=== PATIENT | female | born 1995 | race Caucasian/White ===

== ENCOUNTER 2023-12-25 09:24 | Emergency (ER) | payer OTHER, SELFPAY ==
[2023-12-25 09:34] VITALS: BP 145/94
[2023-12-25 09:52] VITALS: BMI 24.6
--- NOTE | 2023-12-25 10:17 | ED.GENMED ---
History of Present Illness
General
Chief Complaint: DVT/Possible Blood Clot
Time Seen by Provider: 12/25/23 10:08
Travel History
Have you had any contact with someone who has COVID-19?: No
Do you have any symptoms of coronavirus? Fever > 100 degrees, chills, cough, shortness of breath, sore throat, loss of taste or smell, muscle aches, or headache?: No
History of Present Illness
History of Present Illness:
28-year-old female presents to the emergency department for evaluation of intermittent numbness to bilateral dorsal feet associated with painful bruising to the left posterior lateral thigh. Numbness has been intermittent for several weeks and the
bruising was just noted over the past few days. She is concerned about a possible DVT. She has no underlying medical conditions. Denies any traumatic injuries to the thigh. Denies any obvious provoking or palliating factors of the numbness,
states that is quite random. Is not provoked by cold temperatures. No discoloration to the feet. No underlying history of diabetes. No associated fever, chills, sweats, weight loss, or bowel movement changes.
Past History
Past History
ED Past Medical History: None
ED Past Surgical History: None
Social History
Living: with family
Review of Systems
Review of Systems
Allergies reviewed?: Yes
All Other Systems: ROS reviewed and negative except as documented in HPI and ROS
Phy Exam
Physical Exam
Physical Exam:
GEN: Well appearing, NAD, WDWN
HEENT: Oral mucosa moist, no scleral icterus
Cardiac: Regular rate
Lung: No respiratory distress, no tachypnea
MSK: No gross deformity or injuries.minor ecchymosis to the left posterior lateral thigh, no palpable venous cord, no fluctuance, no discharge, tender to palpation. Bilateral dorsalis pedis pulses are 2+,
Skin: Good color, no pallor or jaundice, no rashes
Neuro: AO x3, moves all extremities freely. Sensation intact to bilateral feet symmetrically, no discolorations
Psych: Calm, cooperative
Course
Orders/Labs/Results
Orders:
Orders
12/25/23 10:29
Basic Metabolic Panel Urgent
Complete Blood Count/With Diff Urgent
Ferritin Urgent
Comment: ADD ON
Iron Urgent
Total Iron Binding Urgent
Vitamin B12 Urgent
Comment: ADD ON
12/25/23 11:13
Add On- LAB Urgent
Tests Added?: iron, ferritin, TIBC, B12
Abnormal Lab Results
12/25/23
10:29
MCV 77.1 L fL
(81.0-99.0)
MCH 23.3 L pg
(27.0-31.0)
MCHC 30.3 L g/dL
(33.0-37.0)
RDW 14.6 H %
(11.5-14.5)
Chloride 108 H mmol/L
(98-107)
BUN 20 H mg/dl
(7-17)
Glucose 100 H mg/dl
(70-99)
% Saturation 15 L %
(20-50)
Ferritin 4.4 L ng/ml
(6.24-137)
12/25/23 10:29
12/25/23 10:29
Vital Signs
Initial and Last Documented VS:
Initial Vital Signs
Temp Pulse Resp BP Pulse Ox
98.2 F 96 20 145/94 100
12/25/23 09:34 12/25/23 09:34 12/25/23 09:34 12/25/23 09:34 12/25/23 09:34
Last Documented Vital Signs
Temp Pulse Resp BP Pulse Ox
98.2 F 96 20 145/94 100
12/25/23 09:34 12/25/23 09:34 12/25/23 09:34 12/25/23 09:34 12/25/23 09:34
MDM/Problems Addressed
MDM/Problems Addressed:
Patient does have hypochromic and microcytic RBCs however normal hemoglobin value. Uncertain if this could correlate with a intermittent neuropathy she describes. No clinical concern for DVT. Iron studies were sent, recommend outpatient PCP
follow-up for further direction
*Critical Care Note
Total Time (30-74mins, 75-104mins- exclusive of procedures): Not Applicable
ED Attending Note
-
Portions of this chart may have been created with voice recognition software.� Occasional wrong word or��sound alike� substitutions may have occurred due to the inherent limitations of voice recognition software.
Discharge Plan
Departure
Patient Disposition: Home (Routine Discharge)
Date of Disposition: 12/25/23
Time of Disposition: 11:13
Patient with high blood pressure during this ER visit?: No
Discharge Problem:
Paresthesia
Instructions: Paresthesia (DC)
Prescriptions:
No Action
[id number] fum-folic 1 EACH tablet
1 ea PO DAILY
metoprolol kaba-hydrochlorothiaz [Dutoprol] 1 EACH tablet extended release 24 hr
1 tab PO DAILY
Referrals:
Jaxson Layne MD [Family Provider] -
Activity Restrictions/Additional Instructions:
Your hemoglobin is normal however your red blood cells are smaller than expected. This can sometimes indicate subtle anemia, such as iron deficiency. These tests will take several hours to days to complete. Please access your portal and follow up
with a primary care physician to discuss these results and next steps once they are resulted
Interventions
Interventions:
*Risk Screen - Suicide Last Done: 12/25/23 09:52
*General Assessment Last Done: 12/25/23 09:52
*Neglect/Abuse Screening Last Done: 12/25/23 09:52
ED- Fall Risk Assessment Last Done: 12/25/23 09:52
*ED COVID-19 Vaccine History Last Done: 12/25/23 09:34
*Nursing Disposition Last Done: 12/25/23 11:30
ED- Cardiac Assessment Last Done: 12/25/23 09:52
ED- Pulmonary Assessment Last Done: 12/25/23 09:52
ED-Peripheral Vascular Assessment Last Done: 12/25/23 09:52
ED-Skin Assessment Last Done: 12/25/23 09:52
Discharge Date and Time
Discharge Date/Time: 12/25/23 11:20
Print Language: MACANESE
[2023-12-25 10:40] LABS: % Basophils 0.9 % (0-2); % Eosinophils 4.6 % (0-6); % Immature Granulocytes 0.2 % (0-0.5); % Lymphocytes 30.2 % (20.5-51.1); % Monocytes 6.2 % (1.7-9.3); % Neutrophils 57.9 % (42.2-75.2); Absolute Basophils 0.1 10^3/uL (0-0.2); Absolute Eosinophils 0.3 10^3/uL (0-0.7); Absolute Lymphocytes 1.7 10^3/uL (1.2-3.4); Absolute Monocytes 0.4 10^3/uL (0.1-0.6); Absolute Neutrophils 3.3 10^3/uL (1.4-6.5); Hemoglobin 12.1 g/dL (12.0-16.0); Mean Corp Hgb Conc. 30.3 g/dL (33.0-37.0); Mean Corpuscular Hgb 23.3 pg (27.0-31.0); Mean Corpuscular Volume 77.1 fL (81.0-99.0); Mean Platelet Volume 9.2 fL (7.4-10.4); Nucleated Red Blood Cells % 0 %; Platelet Count 253 10^3/uL (130-400); Red Blood Cell Count 5.19 10^6/uL (4.20-5.40); Red Cell Dist. Width 14.6 % (11.5-14.5); White Blood Cell Count 5.6 10^3/uL (4.8-10.8)
[2023-12-25 10:52] LABS: Blood Urea Nitrogen 20 mg/dl (7-17); Calcium 9.6 mg/dl (8.4-10.2); Carbon Dioxide 24 mmol/L (22-30); Chloride 108 mmol/L (98-107); Estimated Creatinine Clearance 102 ml/min; Glucose 100 mg/dl (70-99); Potassium 4.2 mmol/L (3.5-5.1); Sodium 139 mmol/L (135-145); eGFR > 60.00
--- NOTE | 2023-12-25 11:30 | EDRN ---
Discharge instructions given to patient by Aleksandar Nogueira PA-C.
[2023-12-25 12:58] LABS: Iron 57 ug/dl (37-170)
[2023-12-25 13:08] LABS: Percent Saturation 15 % (20-50); Total Iron Binding Capacity 379 ug/dl (265-497)
[2023-12-25 13:28] LABS: Ferritin 4.4 ng/ml (6.24-137)
[2023-12-25 13:42] LABS: Vitamin B12 436 pg/ml (239-931)
== END 2023-12-25 11:20 | disposition home or self-care (01) ==
LOC: EMR 09:24
PROVIDERS: Physician Assistant; EMERGENCY PHYSICIAN Emergency Medicine; FAMILY PHYSICIAN Internal Medicine
DX: R20.2 Paresthesia of skin (principal); R20.0 Anesthesia of skin
CPT/HCPCS: 99283; 80048; 82607; 82728; 83540; 83550; 85025

== ENCOUNTER → 2024-02-13 16:16 | Outpatient (REF) | payer OTHER, SELFPAY ==
[2024-02-13 14:14] LABS: % Basophils 0.6 % (0-2); % Lymphocytes 41.4 % (20.5-51.1); % Monocytes 5.1 % (1.7-9.3); % Neutrophils 47.9 % (42.2-75.2); Absolute Eosinophils 0.3 10^3/uL (0-0.7); Absolute Lymphocytes 2.8 10^3/uL (1.2-3.4); Absolute Monocytes 0.3 10^3/uL (0.1-0.6); Absolute Neutrophils 3.2 10^3/uL (1.4-6.5); Hematocrit 39.7 % (37.0-47.0); Hemoglobin 12.4 g/dL (12.0-16.0); Mean Corp Hgb Conc. 31.2 g/dL (33.0-37.0); Mean Corpuscular Hgb 24.3 pg (27.0-31.0); Mean Corpuscular Volume 77.8 fL (81.0-99.0); Mean Platelet Volume 9.2 fL (7.4-10.4); Platelet Count 290 10^3/uL (130-400); Red Cell Dist. Width 16.3 % (11.5-14.5); White Blood Cell Count 6.6 10^3/uL (4.8-10.8)
== END ==
LOC: OIDL 16:16
PROVIDERS: ATTENDING PHYSICIAN Internal Medicine Hematology & Oncology
DX: D50.9 Iron deficiency anemia, unspecified (principal)
CPT/HCPCS: 85025

== ENCOUNTER → 2024-02-19 15:32 | Outpatient (REF) | payer OTHER, SELFPAY ==
[2024-02-19 15:24] LABS: % Basophils 0.9 % (0-2); % Eosinophils 2.4 % (0-6); % Immature Granulocytes 0.1 % (0-0.5); % Lymphocytes 34.3 % (20.5-51.1); % Monocytes 5.3 % (1.7-9.3); Absolute Basophils 0.1 10^3/uL (0-0.2); Absolute Eosinophils 0.2 10^3/uL (0-0.7); Absolute Lymphocytes 2.4 10^3/uL (1.2-3.4); Absolute Monocytes 0.4 10^3/uL (0.1-0.6); Hematocrit 37.5 % (37.0-47.0); Hemoglobin 11.9 g/dL (12.0-16.0); Mean Corp Hgb Conc. 31.7 g/dL (33.0-37.0); Mean Corpuscular Hgb 24.1 pg (27.0-31.0); Mean Corpuscular Volume 75.9 fL (81.0-99.0); Mean Platelet Volume 9.3 fL (7.4-10.4); Nucleated Red Blood Cells % 0 %; Platelet Count 280 10^3/uL (130-400); Red Blood Cell Count 4.94 10^6/uL (4.20-5.40); Red Cell Dist. Width 16.6 % (11.5-14.5)
== END ==
LOC: OIDL 15:32
PROVIDERS: ATTENDING PHYSICIAN Internal Medicine Hematology & Oncology
DX: D50.9 Iron deficiency anemia, unspecified (principal)
CPT/HCPCS: 85025

== ENCOUNTER → 2024-03-04 15:43 | Outpatient (REF) | payer OTHER, SELFPAY ==
[2024-03-04 14:31] LABS: % Basophils 0.9 % (0-2); % Eosinophils 4.7 % (0-6); % Immature Granulocytes 0.3 % (0-0.5); % Lymphocytes 36.1 % (20.5-51.1); % Monocytes 7.1 % (1.7-9.3); % Neutrophils 50.9 % (42.2-75.2); Absolute Basophils 0.1 10^3/uL (0-0.2); Absolute Eosinophils 0.3 10^3/uL (0-0.7); Absolute Lymphocytes 2.5 10^3/uL (1.2-3.4); Absolute Monocytes 0.5 10^3/uL (0.1-0.6); Absolute Neutrophils 3.5 10^3/uL (1.4-6.5); Hemoglobin 12.3 g/dL (12.0-16.0); Mean Corp Hgb Conc. 32.4 g/dL (33.0-37.0); Mean Corpuscular Hgb 25.1 pg (27.0-31.0); Mean Corpuscular Volume 77.6 fL (81.0-99.0); Mean Platelet Volume 9.1 fL (7.4-10.4); Nucleated Red Blood Cells % 0 %; Platelet Count 241 10^3/uL (130-400); Red Cell Dist. Width 17.7 % (11.5-14.5); White Blood Cell Count 6.9 10^3/uL (4.8-10.8)
== END ==
LOC: OIDL 15:43
PROVIDERS: ATTENDING PHYSICIAN Internal Medicine Hematology & Oncology
DX: D50.9 Iron deficiency anemia, unspecified (principal)
CPT/HCPCS: 85025